=== PATIENT | male | born 1980 ===

== ENCOUNTER 2017-02-01 10:06 | Emergency (ER) | payer OTHER ==
[2017-02-01 10:10] VITALS: BP 131/75; PULSE 74; RESP 18; TEMP 98.6; O2SAT 100; BMI 23.9
[2017-02-01] MEDS ORDERED: Fluorescein 1 mg Ophthalmic Strip ONE (10:25)
--- NOTE | 2017-02-01 10:36 | ED PDOC ---
HPI: Eye Injury/Pain Time Seen by Provider: 02/01/17 10:07 Chief Complaint (Provider): Right eye redness/drainage History Per: Patient History/Exam Limitations: no limitations Onset/Duration Of Symptoms: Days Current Symptoms Are (Timing): Still Present Additional Complaint(s): Pt states that he has been having left eye redness for 5 days and drainage for 3 days. Pt saw his eye doctor for new glasses 1 week ago and was told at the time he has no vision in the right eye. Pt. states he thought the vision in the right eye has been blurry which is was prompted him to see his eye doctor last week. Pt states he eye doctor referred him to a retina specialist for further evaluation. PT states the appointment is in 3 days. Pt denies pain. Pt states he had retinal detachment in 2014 and had surgery to fix it. Past Medical History Reviewed: Historical Data, Nursing Documentation, Vital Signs Vital Signs: Last Vital Signs Temp 98.6 F 02/01/17 10:09 Pulse 74 02/01/17 10:09 Resp 18 02/01/17 10:09 BP 131/75 02/01/17 10:09 Pulse Ox 100 02/01/17 10:09 - Medical History PMH: No Chronic Diseases - Surgical History Other surgeries: Retina surgery - Family History Family History: States: No Known Family Hx - Living Arrangements Living Arrangements: With Family - Social History Current smoker - smoking cessation education provided: No Alcohol: None Drugs: Denies - Home Medications Home Medications: Ambulatory Orders Medication Instructions Recorded Polymyxin/Trimethoprim Sulfate 1 drop XX Q6H 10 Days 02/01/17 [Polytrim Ophth Soln] - Allergies Allergies/Adverse Reactions: Allergies Allergy/AdvReac Type Severity Reaction Status Date / Time No Known Allergies Allergy Verified 02/01/17 10:17 Review of Systems ROS Statement: Except As Marked, All Systems Reviewed And Found Negative Eyes: Positive for: Vision Change (> 1 week), Redness (4 days ), Other ( Drainage ). Negative for: Pain Physical Exam - Reviewed Nursing Documentation Reviewed: Yes Vital Signs Reviewed: Yes - Physical Exam Appears: Positive for: Well, Non-toxic, No Acute Distress Head Exam: Positive for: ATRAUMATIC, NORMAL INSPECTION, NORMOCEPHALIC Skin: Positive for: Normal Color, Warm, DRY Eye Exam: Positive for: Other (No corneal abrasions ). Negative for: Normal appearance, EOMI, PERRL (Right eye constricted and non-reative, hazy - Unable to see retina) ENT: Positive for: Normal ENT Inspection Neck: Positive for: Normal, Painless ROM Respiratory: Negative for: Accessory Muscle Use, Respiratory Distress Back: Positive for: Normal Inspection Extremity: Positive for: Normal ROM. Negative for: Tenderness Neurologic/Psych: Positive for: Alert, Oriented - ECG O2 Sat by Pulse Oximetry: 100 Disposition - Clinical Impression Clinical Impression: Bacterial conjunctivitis of right eye - Patient ED Disposition Is Patient to be Admitted: No Counseled Patient/Family Regarding: Diagnosis, Need For Followup, Rx Given - Disposition Referrals: [facility] [Outside] Everett Luong MD [Staff Provider] - Disposition: Routine/Home Disposition Time: 10:39 Condition: GOOD Additional Instructions: Please follow-up with scheduled appointment with retina specialist. Prescriptions: Polymyxin/Trimethoprim Sulfate [Polytrim Ophth Soln] 1 drop XX Q6H 10 Days Instructions: Conjunctivitis (ED)
== END 2017-02-01 10:57 | disposition home or self-care (01) ==
LOC: H.ER 10:06
DX: H10.89 Other conjunctivitis (principal)

== ENCOUNTER 2017-12-29 20:17 | Emergency (ER) | payer SELFPAY ==
[2017-12-29 20:17] VITALS: BMI 23.9
[2017-12-29 21:06] VITALS: BP 121/78; PULSE 88; RESP 16; TEMP 97.5; O2SAT 99
[2017-12-29] MEDS ORDERED: Albuterol-Ipratrop 3 mg / 0.5 (3 ml) UD IH STA (21:51)
--- NOTE | 2017-12-29 21:53 | ED PDOC ---
HPI: CCC, URI, Sore Throat Time Seen by Provider: 12/29/17 21:10 Chief Complaint (Nursing): Cough, Cold, Congestion Chief Complaint (Provider): cough, congestion History Per: Patient History/Exam Limitations: no limitations Onset/Duration Of Symptoms: Days (2 weeks) Current Symptoms Are (Timing): Still Present Associated Symptoms: Cough, Sputum, Nasal Congestion Additional Complaint(s): 37 y/o male presents for evaluation of persistent cough (with intermittent sputum production) x 2 weeks. Associated nasal congestion, tactile fevers. Patient reports soreness in chest when coughing. Denies headache, nausea/ vomiting, shortness of breath, palpitations, leg pain/swelling, recent travel. 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 Taking robitussin with little relief Past Medical History Reviewed: Historical Data, Nursing Documentation, Vital Signs Vital Signs: Last Vital Signs Temp 97.5 F L 12/29/17 21:03 Pulse 88 12/29/17 21:03 Resp 16 12/29/17 21:03 BP 121/78 12/29/17 21:03 Pulse Ox 99 12/29/17 21:54 - Medical History PMH: No Chronic Diseases - Surgical History Surgical History: No Surg Hx - Family History Family History: States: No Known Family Hx - Living Arrangements Living Arrangements: With Family - Home Medications Home Medications: Ambulatory Orders Medication Instructions Recorded Polymyxin/Trimethoprim Sulfate 1 drop XX Q6H 10 Days bottle 02/01/17 [Polytrim Ophth Soln] Albuterol HFA [Ventolin HFA 90 1 puff IH Q4 PRN #1 inh 12/29/17 mcg/actuation (8 g)] Fluticasone Nasal [Flonase] 1 actuation NS BID #1 bottle 12/29/17 Ibuprofen [Motrin Tab] 1 tab PO Q6 PRN #20 tab 12/29/17 Promethazine/Codeine 5 ml PO TID PRN #75 ml 12/29/17 [Phenergan/Codeine Oral Syrup] - Allergies Allergies/Adverse Reactions: Allergies Allergy/AdvReac Type Severity Reaction Status Date / Time No Known Allergies Allergy Verified 12/29/17 21:03 Review of Systems ROS Statement: Except As Marked, All Systems Reviewed And Found Negative ENT: Positive for: Nose Congestion Respiratory: Positive for: Cough, Sputum Physical Exam - Reviewed Nursing Documentation Reviewed: Yes Vital Signs Reviewed: Yes - Physical Exam Appears: Positive for: Well, Non-toxic, No Acute Distress Head Exam: Positive for: ATRAUMATIC, NORMAL INSPECTION, NORMOCEPHALIC Skin: Positive for: Normal Color Eye Exam: Positive for: Normal appearance ENT: Positive for: Normal ENT Inspection Cardiovascular/Chest: Positive for: Regular Rate, Rhythm Respiratory: Positive for: Normal Breath Sounds Gastrointestinal/Abdominal: Positive for: Normal Exam Back: Positive for: Normal Inspection Extremity: Positive for: Normal ROM Neurologic/Psych: Positive for: Alert, Oriented - ECG O2 Sat by Pulse Oximetry: 99 - Radiology X-Ray: Viewed By Wy X-Ray Interpretation: No Acute Disease - Progress ED Course And Treament: xray, duoneb On re-eval, patient states he is feeling better. Patient educated on findings, discharged with rx albuterol HFA, flonase, promethazine with codeine, and ibuprofen Advised fluids, rest Follow up PMD 2-3 days. Return precautions given Disposition - Clinical Impression Clinical Impression: Bronchitis - Patient ED Disposition Is Patient to be Admitted: No Counseled Patient/Family Regarding: Studies Performed, Diagnosis, Need For Followup, Rx Given - Disposition Disposition: Routine/Home Disposition Time: 22:43 Condition: IMPROVED Prescriptions: Albuterol HFA [Ventolin HFA 90 mcg/actuation (8 g)] 1 puff IH Q4 PRN #1 inh PRN Reason: Wheezing Fluticasone Nasal [Flonase] 1 actuation NS BID #1 bottle Ibuprofen [Motrin Tab] 1 tab PO Q6 PRN #20 tab PRN Reason: Pain, Moderate (4-7) Promethazine/Codeine [Phenergan/Codeine Oral Syrup] 5 ml PO TID PRN #75 ml PRN Reason: Cough Instructions: Acute Bronchitis Forms: [facility] (Irish), [facility] ED School/Work Excuse
[2017-12-29] MEDS ORDERED: Albuterol-Ipratrop 3 mg / 0.5 (3 ml) UD ONE (22:01)
--- NOTE | 2017-12-30 10:53 | RAD ---
HISTORY: cough COMPARISON: No prior. TECHNIQUE: Chest PA and lateral FINDINGS: LUNGS: The left retrocardiac infrahilar bronchovascular markings appear increased here a patchy infiltrate is suspect. PLEURA: No significant pleural effusion identified. No pneumothorax apparent. CARDIOVASCULAR: Normal. OSSEOUS STRUCTURES: No significant abnormalities. VISUALIZED UPPER ABDOMEN: Normal. OTHER FINDINGS: None. IMPRESSION: Left medial lung base patchy infiltrate
== END 2017-12-29 23:05 | disposition home or self-care (01) ==
LOC: H.ER 20:17
DX: J40 Bronchitis, not specified as acute or chronic (principal)

== ENCOUNTER 2018-05-03 20:16 | Emergency (ER) | payer SELFPAY ==
[2018-05-03 20:16] VITALS: BMI 23.9
[2018-05-03 20:41] VITALS: BP 134/80; PULSE 72; RESP 18; TEMP 97.9; O2SAT 99
--- NOTE | 2018-05-03 21:12 | ED PDOC ---
HPI: General Adult Time Seen by Provider: 05/03/18 21:10 Chief Complaint (Nursing): Abnormal Skin Integrity Chief Complaint (Provider): rash History Per: Patient (37 y/o male here with rash noted left side of flank x 3 days painful. Denies any other illness. NO fever/chills.) Past Medical History Reviewed: Historical Data, Nursing Documentation, Vital Signs Vital Signs: Last Vital Signs Temp 97.9 F 05/03/18 20:38 Pulse 72 05/03/18 20:38 Resp 18 05/03/18 20:38 BP 134/80 05/03/18 20:38 Pulse Ox 99 05/03/18 20:38 - Family History Family History: States: No Known Family Hx - Home Medications Home Medications: Ambulatory Orders Medication Instructions Recorded Polymyxin/Trimethoprim Sulfate 1 drop XX Q6H 10 Days bottle 02/01/17 [Polytrim Ophth Soln] Albuterol HFA [Ventolin HFA 90 1 puff IH Q4 PRN #1 inh 12/29/17 mcg/actuation (8 g)] Fluticasone Nasal [Flonase] 1 actuation NS BID #1 bottle 12/29/17 Ibuprofen [Motrin Tab] 1 tab PO Q6 PRN #20 tab 12/29/17 Promethazine/Codeine 5 ml PO TID PRN #75 ml 12/29/17 [Phenergan/Codeine Oral Syrup] Ibuprofen [Motrin] 600 mg PO Q8 PRN #21 tab 05/03/18 predniSONE [predniSONE Tab] 3 tab PO DAILY #15 tab 05/03/18 valACYclovir [Valtrex] 1 gm PO TID #21 tab 05/03/18 - Allergies Allergies/Adverse Reactions: Allergies Allergy/AdvReac Type Severity Reaction Status Date / Time No Known Allergies Allergy Verified 12/29/17 21:03 Review of Systems ROS Statement: Except As Marked, All Systems Reviewed And Found Negative Physical Exam - Reviewed Nursing Documentation Reviewed: Yes Vital Signs Reviewed: Yes - Physical Exam Appears: Positive for: Well, Non-toxic, No Acute Distress Head Exam: Positive for: ATRAUMATIC, NORMAL INSPECTION, NORMOCEPHALIC Skin: Positive for: Normal Color, Warm, Rash (vesicular/erythema rash left side thoracic region.) Eye Exam: Positive for: EOMI, Normal appearance, PERRL ENT: Positive for: Normal ENT Inspection Neck: Positive for: Normal, Painless ROM Cardiovascular/Chest: Positive for: Regular Rate, Rhythm Respiratory: Positive for: CNT, Normal Breath Sounds Gastrointestinal/Abdominal: Positive for: Normal Exam, Soft Back: Positive for: Normal Inspection Extremity: Positive for: Normal ROM Neurologic/Psych: Positive for: Alert, Oriented - ECG O2 Sat by Pulse Oximetry: 99 Disposition - Clinical Impression Clinical Impression: Shingles - Patient ED Disposition Is Patient to be Admitted: No - Disposition Disposition: Routine/Home Disposition Time: 21:11 Condition: FAIR Prescriptions: Ibuprofen [Motrin] 600 mg PO Q8 PRN #21 tab PRN Reason: Pain, Moderate (4-7) predniSONE [predniSONE Tab] 3 tab PO DAILY #15 tab valACYclovir [Valtrex] 1 gm PO TID #21 tab Instructions: [place] (DC) Forms: [facility] ED School/Work Excuse
== END 2018-05-03 21:39 | disposition home or self-care (01) ==
LOC: H.ER 20:16
DX: B02.9 Zoster without complications (principal)